=== PATIENT | female | born 1960 | race Caucasian/White ===

== ENCOUNTER → 2016-12-12 20:36 | Outpatient (CLI) | payer MEDICARE ==
[2011-08-28 05:49] VITALS: BMI 19.0
[2016-12-12 23:36] LABS: ERYTHROCYTE SEDIMENTATION RATE 26 mm/hr (0-30)
== END | disposition home or self-care (01) ==
LOC: D.LABREF 20:36
PROVIDERS: Family Medicine
DX: M79.641 Pain in right hand (principal)

== ENCOUNTER → 2019-02-12 15:35 | Outpatient (CLI) | payer MEDICARE ==
[2011-08-28 05:49] VITALS: BMI 19.0
== END | disposition home or self-care (01) ==
LOC: D.RAD 15:35
PROVIDERS: ATTEND Emergency Medicine
DX: R05 Cough (principal)

== ENCOUNTER → 2019-02-26 15:09 | Outpatient (CLI) | payer MEDICARE ==
[2011-08-28 05:49] VITALS: BMI 19.0
== END | disposition home or self-care (01) ==
LOC: D.RAD 15:09
PROVIDERS: ATTEND Emergency Medicine
DX: M25.551 Pain in right hip (principal)

== ENCOUNTER → 2019-05-14 10:31 | Outpatient (CLI) | payer MEDICARE ==
[2011-08-28 05:49] VITALS: BMI 19.0
== END | disposition home or self-care (01) ==
LOC: D.CT 10:31
PROVIDERS: ATTEND Emergency Medicine
DX: M25.551 Pain in right hip (principal)

== ENCOUNTER → 2020-04-19 12:23 | Outpatient (CLI) | payer MEDICARE ==
[2011-08-28 05:49] VITALS: BMI 19.0
== END | disposition home or self-care (01) ==
LOC: D.RAD 12:23
PROVIDERS: ATTEND Nurse Practitioner Family
DX: M25.562 Pain in left knee (principal)